=== PATIENT | female | born 1985 | race Caucasian/White ===

== ENCOUNTER 2017-03-19 08:35 | Emergency (ER) | payer SELFPAY ==
[2017-03-19 08:49] VITALS: O2SAT 97
--- NOTE | 2017-03-19 08:54 | ED.PDOC ---
History of Present Illness - General Chief Complaint: Dental/Mouth Stated Complaint: Left upper jaw swelling/pain Time Seen by Provider: 03/19/17 08:48 Source: patient Exam Limitations: no limitations - History of Present Illness Initial Comments: Brittni Dozier 31 y/o female stated that her tooth started hurting on her upper molars since Saturday.Noted also gum and facial swelling left side. Timing/Duration: gradual, other - 4 days ago Severity: moderate EENT Location: mouth, dental Prearrival Treatment: no prearrival treatment Improving Factors: nothing Worsening Factors: other - chewing Associated Symptoms: denies symptoms Allergies/Adverse Reactions: Allergies NO KNOWN ALLERGY Allergy (Verified 03/19/17 08:51) Home Medications: Ambulatory Orders Clindamycin HCl 300 mg PO BID #20 cap 03/19/17 Tramadol HCl 50 mg PO TID PRN #10 tab 03/19/17 Review of Systems - Review of Systems Constitutional: States: no symptoms reported EENTM: States: mouth swelling - dental with numerous decayed teeth upper and lower molars as well as incisors and swelling lefttupper gum and face Respiratory: States: cough Gastrointestinal/Abdominal: States: no symptoms reported Genitourinary: States: no symptoms reported Past Medical History (General) - Patient Medical History Hx Diabetes: No Hx Renal Disease: Yes - kidney stones Surgical History: cholecystectomy, other - - Vaccination History Hx Tetanus, Diphtheria Vaccination: No Hx Influenza Vaccination: No Hx Pneumococcal Vaccination: No - Social History Hx Tobacco Use: Yes Hx Alcohol Use: No Hx Substance Use: No Hx Substance Use Treatment: No Hx Depression: No - Female History Hx Last Menstrual Period: 01/14/17 Patient : No Family Medical History - Family History Mother Family History: Unknown Living Status: Still Living Hx Family Cancer: Yes Physical Exam - Physical Exam General Appearance: Alert, No apparent distress Eye Exam: bilateral normal Ear Exam: bilateral ear: auricle normal, canal normal, TM normal Nasal Exam: normal inspection Throat Exam: dental tenderness - upper molars left Neck: non-tender, supple Cardiovascular/Respiratory: regular rate, rhythm, normal peripheral pulses, no respiratory distress Abdominal Exam: non-tender, no organomegaly Neurologic: alert, oriented x 3 Skin Exam: normal color, warm/dry Progress - Progress Progress: 03/19/17 09:00 Vital Signs 03/19/17 08:48 Temperature 99.5 F Pulse Rate [ 77 Left Radial] Respiratory 20 Rate Blood Pressure 100/69 [Left Arm] O2 Sat by Pulse 97 Oximetry Departure - Departure Clinical Impression: Tooth pulpitis, Tooth decay Cellulitis Qualifiers: Site of cellulitis: face Qualified Code(s): L03.211 - Cellulitis of face Time of Disposition: 09:03 Disposition: Discharge to Home or Self Care Condition: Good Departure Forms: ED Discharge - Pt. Copy, Patient Portal Self Enrollment Instructions: Tooth Decay, DI for Tooth Decay Diet: other - SOFT DIET UNTIL BETTER Prescriptions: Clindamycin HCl 300 mg PO BID #20 cap Tramadol HCl 50 mg PO TID PRN #10 tab PRN Reason: Pain Home Medications: Ambulatory Orders Clindamycin HCl 300 mg PO BID #20 cap 03/19/17 Tramadol HCl 50 mg PO TID PRN #10 tab 03/19/17 Additional Instructions: Make appointment with [facility] [place] [phone]
[2017-03-19] MEDS ORDERED: CLINDAMYCIN PHOSPHATE 150 MG/ML VIAL IM ONE (09:01)
[2017-03-19] MEDS ORDERED: CLINDAMYCIN HCL CAP 150 MG CAP PO ONE (09:01)
[2017-03-19] MEDS ORDERED: TETANUS,DIPHTHERIA,PERTUSSIS 1 EA SYG IM ONE (09:02)
[2017-03-19 09:43] VITALS: BP 118/75; TEMP 98.6
== END 2017-03-19 09:40 | disposition home or self-care (01) ==
LOC: ER 08:35
DX: K04.01 Reversible pulpitis (principal); K02.9 Dental caries, unspecified; Z23 Encounter for immunization; L03.211 Cellulitis of face; Z87.891 Personal history of nicotine dependence
CPT/HCPCS: 90471; J3490

== ENCOUNTER 2018-03-15 18:59 | Emergency (ER) | payer SELFPAY ==
[2018-03-15 19:28] VITALS: BP 115/77; TEMP 99.1; O2SAT 100
[2018-03-15] MEDS ORDERED: ACETAMINOPHEN W/COD #3 TAB (ER Disp) PO ONE (19:37)
[2018-03-15] MEDS ORDERED: HYDROcodone 10MG/APAP 325MG 1 EA TAB PO ONE (19:37)
[2018-03-15] MEDS ORDERED: IBUPROFEN 200 MG TAB PO ONE (19:37)
[2018-03-15] MEDS ORDERED: [UNRECOGNIZED DRUG - OTHER] PO ONE (19:37)
--- NOTE | 2018-03-15 19:42 | ED.PDOC ---
History of Present Illness - General Chief Complaint: Dental/Mouth Stated Complaint: pain in jaw Time Seen by Provider: 03/15/18 19:37 Source: patient Exam Limitations: no limitations - History of Present Illness Initial Comments: c/o dental pain & facial swelling. Numerous previous episodes. Has not seen a dentist but is looking for one. Timing/Duration: gradual Severity: moderate EENT Location: dental Prearrival Treatment: no prearrival treatment Improving Factors: nothing Worsening Factors: eating Associated Symptoms: drooling Allergies/Adverse Reactions: Allergies NO KNOWN ALLERGY Allergy (Verified 03/15/18 19:21) Home Medications: Ambulatory Orders Acetaminophen W/ Codeine [Tylenol W/ CODEINE #3] 1 ea PO Q8HR PRN 4 Days #12 Penicillin V Pot Tab [Veetids] 500 mg PO QID 7 Days #28 tab 03/15/18 Review of Systems - Review of Systems Constitutional: States: no symptoms reported. Denies: fever EENTM: States: see HPI. Denies: blurred vision, ear discharge, nose pain, nose congestion, throat pain, throat swelling Respiratory: States: no symptoms reported Cardiology: States: no symptoms reported Gastrointestinal/Abdominal: Denies: nausea, vomiting Musculoskeletal: Denies: neck pain Skin: States: no symptoms reported Neurological: Denies: headache Past Medical History (General) - Patient Medical History Hx Stroke: No Hx Congestive Heart Failure: No Hx Diabetes: No Hx Renal Disease: Yes - kidney stones Hx MRSA: No Surgical History: cholecystectomy, other - Vaccination History Hx Tetanus, Diphtheria Vaccination: No Hx Influenza Vaccination: No Hx Pneumococcal Vaccination: No - Social History Hx Tobacco Use: Yes Hx Alcohol Use: No Hx Substance Use: No Hx Substance Use Treatment: No Hx Depression: No - Female History Hx Last Menstrual Period: 01/14/17 Patient : No - Triage Comment ED Triage Comment: Pt reports her Rt side jaw has been hurting since yesterday. Pt has noted swelling today, but she waited til she got off to come in. Rates pain6/10, throbbing. Family Medical History - Family History Mother Family History: Unknown Living Status: Still Living Hx Family Cancer: Yes Physical Exam - Physical Exam General Appearance: Alert, No apparent distress Eye Exam: bilateral normal Nasal Exam: normal inspection Throat Exam: pharynx normal, dental tenderness, maxillary swelling, other - all teeth are necrotic & eroded Neck: full range of motion, supple, normal inspection Cardiovascular/Respiratory: no respiratory distress Neurologic: alert, normal mood/affect, oriented x 3 Skin Exam: normal color, warm/dry Departure - Departure Clinical Impression: Dental neglect, Compound dental caries, Pain, dental Time of Disposition: 19:40 Disposition: Discharge to Home or Self Care Condition: Fair Departure Forms: ED Discharge - Pt. Copy, Patient Portal Self Enrollment Instructions: DI for Dental Pain Prescriptions: Acetaminophen W/ Codeine [Tylenol W/ CODEINE #3] 1 ea PO Q8HR PRN 4 Days #12 PRN Reason: Moderate Pain Penicillin V Pot Tab [Veetids] 500 mg PO QID 7 Days #28 tab Home Medications: Ambulatory Orders Acetaminophen W/ Codeine [Tylenol W/ CODEINE #3] 1 ea PO Q8HR PRN 4 Days #12 Penicillin V Pot Tab [Veetids] 500 mg PO QID 7 Days #28 tab 03/15/18
== END 2018-03-15 19:56 | disposition home or self-care (01) ==
LOC: ER 18:59
DX: K02.9 Dental caries, unspecified (principal); Z87.891 Personal history of nicotine dependence